=== PATIENT | female | born 1955 | race Caucasian/White ===

== ENCOUNTER 2016-12-18 16:02 | Emergency (ER) | payer OTHER, BC ==
[2016-12-18] MEDS ORDERED: KETOROLAC 60 MG/2 ML VIAL IVP STA (16:32)
[2016-12-18] MEDS ORDERED: SODIUM CHLORIDE 0.9% 1,000 ML IV ONE (16:32)
[2016-12-18] MEDS ORDERED: KETOROLAC 30 MG/ML VIAL ONE (16:46)
[2016-12-18] MEDS ORDERED: IOPAMIDOL-300 100 ML VIAL IVP ONE (17:33)
[2016-12-18] MEDS ORDERED: HYDROcod/ACETAM 5/325 MG TABLET PO STA (18:35)
[2016-12-18] MEDS ORDERED: HYDROcod/ACETAM 5/325 MG TABLET ONE (18:37)
== END 2016-12-18 18:59 | disposition home or self-care (01) ==
DX: S13.9XXA Sprain of joints and ligaments of unspecified parts of neck, initial encounter (principal); S20.211A Contusion of right front wall of thorax, initial encounter; V43.52XA Car driver injured in collision with other type car in traffic accident, initial encounter; Y92.410 Unspecified street and highway as the place of occurrence of the external cause; R03.0 Elevated blood-pressure reading, without diagnosis of hypertension
CPT/HCPCS: 36415; 71260; 72125; 80048; 85025; 96374; 99283; 99284; A9270; Q9967

== ENCOUNTER 2016-12-25 15:02 | Outpatient (CLI) | payer OTHER | END 2016-12-25 15:03 | disposition home or self-care (01) | DX: M51.34 Other intervertebral disc degeneration, thoracic region (principal); M51.36 Other intervertebral disc degeneration, lumbar region; M47.816 Spondylosis without myelopathy or radiculopathy, lumbar region ==

== ENCOUNTER 2019-03-25 15:55 | Outpatient (CLI) | payer OTHER ==
--- NOTE | 2019-03-26 11:25 | Mammography Report ---
Reason: SCREENING MAMMO Procedure Date: 03/25/2019 Accession Number: [id number] / [id number] Procedure: ROSALINO - Screening Mammo w/Fredo CPT Code: FULL RESULT: EXAM: Screening Mammo w/Fredo DATE: 03/25/2019 4:22 PM CLINICAL HISTORY: Routine screening TECHNIQUE: (B) - Bilateral CC and MLO views were obtained. COMPARISON: 03/01/2014, 10/06/2012, 02/17/2010 PARENCHYMAL PATTERN: (F) - The breasts demonstrate diffuse fatty replacement bilaterally. FINDINGS: There is no significant interval change. There are no suspicious masses, calcifications, or areas of distortion. IMPRESSION: Negative examination. BI-RADS category 1. RECOMMENDATION: (ANNUAL) - Recommend routine annual screening mammography. BI-RADS CATEGORY: (1) - Negative. STANDARD QUALIFYING STATEMENTS: 1. This examination was not reviewed with the aid of Computer-Aided Detection (CAD). 2. A negative or benign imaging report should not preclude biopsy if clinically suspicious findings are present. 3. Dense breasts may obscure an underlying neoplasm. 4. This examination was reviewed with the aid of 3D breast imaging (tomosynthesis).
== END 2019-03-25 15:56 | disposition home or self-care (01) ==
LOC: DI 15:55
PROVIDERS: ATTEND Nurse Practitioner Family
DX: Z12.31 Encounter for screening mammogram for malignant neoplasm of breast (principal)
CPT/HCPCS: 77063; 77067

== ENCOUNTER 2021-01-07 10:49 | Emergency (ER) | payer OTHER, BC ==
--- NOTE | 2021-01-07 11:21 | ED Physician Documentation ---
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 She reports that she was walking to a client's house and was about to step up with a threshold when she slipped falling forward striking her head on the tile entryway. She has a large contusion above her left eyebrow. She also reports falling directly onto the right knee but not twisting it. She had difficulty getting up. Did not lose consciousness. She is not anticoagulated. pt endorses nausea, but no vomiting. no vision changes. + headache and nausea. no vomiting. appears otherwise well. Review of Systems Constitutional: reports: Reviewed and negative Eyes: denies: Loss of vision, Decreased vision Ears: reports: Reviewed and negative Nose: reports: Reviewed and negative Throat: reports: Reviewed and negative Cardiac: reports: Reviewed and negative Respiratory: reports: Reviewed and negative GI: reports: Reviewed and negative : reports: Reviewed and negative Skin: reports: Reviewed and negative Musculoskeletal: reports: Back pain, Joint pain (right knee) Neurologic: reports: Headache, Head injury. denies: Syncope, Seizure, Confused, LOC Psychiatric: reports: Reviewed and negative PD PAST MEDICAL HISTORY - Present Medications Home Medications: Ambulatory Orders Medication Instructions Recorded Confirmed Gabapentin 12/18/16 HYDROcod/ACETAM 5/325 [[place] 5/325] 1 - 2 ea PO Q6H PRN #15 tablet 12/18/16 Loratadine [Claritin] 12/18/16 Sertraline [Zoloft] 100 12/18/16 Ondansetron Odt [Zofran] 4 mg TL Q6H PRN #10 tab 01/07/21 - Allergies Allergies/Adverse Reactions: Allergies Allergy/AdvReac Type Severity Reaction Status Date / Time codeine Allergy Emesis Verified 01/07/21 10:59 morphine Allergy Emesis Verified 01/07/21 10:59 PD ED PE EXPANDED - General General: Alert, No acute distress, Well developed/nourished - HEENT HEENT: PERRL, EOMI, Other (Large contusion of the left eyebrow without laceration. EOMI is intact in all planes. Mild tenderness above the left orbital ridge without crepitus or deformity. No nasal drainage. No ear drainage.). No: Right frontal sinus TTP, Left frontal sinus TTP, Right maxillary sinus TTP, Left maxillary sinus TTP, Nasal congestion - Neck Neck: Supple w/out meningeal sx. No: Adenopathy - Cardiac Cardiac: Regular Rate, Regular Rhythm - Respiratory Respiratory: Clear to ausultation riaz. No: Distress, Labored - Abdomen Abdomen: No: Tender to palpation - Extremities Extremities: Normal, Tenderness (right knee), Right knee (Full range of motion of the right knee in all planes. Contusion mild abrasion on the patella. No laxity. Patient bears full weight on the right leg with a mild limp only). No: Deformity - Neuro Neuro: Alert and Oriented X 3, CNII-XII intact - GCS Eye Opening: Spontaneous Motor: Obeys Commands Verbal: Oriented Total: 15 Results - Vitals Vitals: Vital Signs - 24 hr 01/07/21 01/07/21 10:56 11:55 Temperature 36.0 C L Heart Rate 84 77 Respiratory 16 15 Rate Blood Pressure 143/76 H 114/68 O2 Saturation 97 97 Oxygen O2 Source Room air - Rads (name of study) CT head Radiology: Final report received (Left periorbital hematoma. No acute fractures. No intraparenchymal head bleed or injury.) right knee Radiology: Final report received (Age-related degenerative changes. 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 She has a very large hematoma surrounding the left eye. CT of the head is unremarkable. She also fell directly onto the right knee and has an abrasion and contusion of the knee. X-ray imaging of the knee does not show any fractures. She is ambulatory though she has a mild limp. Patient will be discharged home to follow-up with her primary care doctor. She is returned to full unrestricted duty 01/12/2021. Emergent return precautions discussed. appropriate L&I paperwork completed Departure - Departure Disposition: 01 Home, Self Care Clinical Impression: Contusion of left eyebrow Qualifiers: Encounter type: initial encounter Qualified Code(s): S00.12XA - Contusion of left eyelid and periocular area, initial encounter Contusion of right knee Qualifiers: Encounter type: initial encounter Qualified Code(s): S80.01XA - Contusion of right knee, initial encounter Fall Qualifiers: Encounter type: initial encounter Qualified Code(s): W19.XXXA - Unspecified fall, initial encounter Concussion Qualifiers: Encounter type: initial encounter Loss of consciousness presence/duration: without LOC Qualified Code(s): S06.0X0A - Concussion without loss of consciousness, initial encounter Condition: Stable Record reviewed to determine appropriate education?: Yes Instructions: ED Head Injury Closed Follow-Up: Balwinder Vega ARNP [Primary Care Provider] - Prescriptions: Ondansetron Odt [Zofran] 4 mg TL Q6H PRN #10 tab PRN Reason: Nausea / Vomiting Comments: Melani the CT of your head does not show any broken bones or bleeding within the brain. You do however have a very large hematoma around her left eye. This should resolve over the next 7 to 10 days. The x-ray of your knee shows age-appropriate degenerative changes but no acute fractures. I do recommend that you Gonzalez wrap the knee when out of bed and ambulating for the next 2 to 3 days. I expect that over the next 2 to 3 days you will be much more sore than you are at this current time. I recommend that you take ibuprofen and Tylenol 2-3 times throughout the day to help with soreness. Try and be as active as possible and keep moving. If at any point you develop a suddenly severe headache, have uncontrolled vomiting, double vision or feel that your symptoms are worsening please return to the emergency department. You are return to full unrestricted duty and work 01/12/21
[2021-01-07] MEDS ORDERED: ONDANSETRON ODT 4 MG TABLET TL STA (11:22)
--- NOTE | 2021-01-07 11:54 | CT Report ---
PROCEDURE: HEAD WO INDICATIONS: left eyebrow contusion TECHNIQUE: Noncontrast 4.5 mm thick angled axial sections acquired from the foramen magnum to the vertex. For r adiation dose reduction, the following was used: automated exposure control, adjustment of mA and/or kV according to patient size. COMPARISON: Correlation is made with report only from prior head CT 10/14/2010. FINDINGS: Image quality: Excellent. CSF spaces: Basal cisterns are patent. No extra-axial fluid collections. Ventricles are normal in size and shape. Brain: No midline shift. No intracranial masses or hemorrhage. Fregoso-white matter interface is norm al. Skull and face: There is a left periorbital soft tissue hematoma, without an associated regional fra cture. Calvarium and visualized facial bones are intact, without suspicious lesions. Hyperostosis fr ontalis is incidentally noted, which is not frankly abnormal for a female patient of this age. Sinuses: Visualized sinuses and mastoids are clear. IMPRESSION: Left periorbital hematoma, without an associated fracture. No intracranial hemorrhage is seen. No significant intracranial abnormality is seen. Reviewed by: Blaise Alvarez MD on 01/07/2021 10:52 AM [facility] Approved by: Blaise Alvarez MD on 01/07/2021 10:52 AM [facility] Station ID: [id number]
--- NOTE | 2021-01-07 11:55 | XRAY Report ---
PROCEDURE: Knee 3 View RT INDICATIONS: fall; contusion patella TECHNIQUE: 3 views of the right knee(s) were acquired. COMPARISON: None. FINDINGS: Bones: No fractures or dislocations. No suspicious bony lesions. There is mild medial femorotibial joint space narrowing, with associated degenerative change with subchondral sclerosis and osteophyte formation. Soft tissues: No joint effusion. No suspicious soft tissue calcifications. IMPRESSION: No displaced fractures are seen, including involving the patella. Age-appropriate degenerative changes are seen. Please correlate with focal tenderness. If there is point tenderness (or other clinical concern for a fracture not seen on these plain films) then please consider a dedicated CT study for further evalua tion. If there is strong clinical concern for internal derangement of the knee, please consider a dedicated knee MRI for further evaluation (assuming that there is no contraindication). Reviewed by: Blaise Alvarez MD on 01/07/2021 10:54 AM [facility] Approved by: Blaise Alvarez MD on 01/07/2021 10:54 AM [facility] Station ID: [id number]
[2021-01-07] MEDS ORDERED: IBUPROFEN 600 MG TABLET PO STA (11:58)
[2021-01-07 12:22] VITALS: BP 127/82
== END 2021-01-07 12:21 | disposition home or self-care (01) ==
LOC: ED 10:49
DX: S06.0X1A Concussion with loss of consciousness of 30 minutes or less, initial encounter (principal); S00.83XA Contusion of other part of head, initial encounter; S80.211A Abrasion, right knee, initial encounter; W01.198A Fall on same level from slipping, tripping and stumbling with subsequent striking against other object, initial encounter; Y93.01 Activity, walking, marching and hiking; Y92.099 Unspecified place in other non-institutional residence as the place of occurrence of the external cause
CPT/HCPCS: 70450; 73562; 99284; A9270; Q0162

== ENCOUNTER 2021-08-02 12:28 | Outpatient (CLI) | payer MEDICARE, OTHER | END 2021-08-02 12:29 | disposition home or self-care (01) | LOC: COV 12:28 | PROVIDERS: ATTEND Family Medicine | DX: U07.1 COVID-19 (principal) ==

== ENCOUNTER 2021-08-11 16:42 | Inpatient (IN) | payer MEDICARE, OTHER ==
[2021-08-11] MEDS ORDERED: DEXAMETHASONE 10 MG/ML VIAL IVP STA (17:14)
[2021-08-11] MEDS ORDERED: ONDANSETRON 4 MG/2 ML VIAL IVP STA (17:14)
[2021-08-11] MEDS ORDERED: KETOROLAC 30 MG/ML VIAL IVP STA (17:14)
--- NOTE | 2021-08-11 17:16 | ED Physician Documentation ---
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 She became symptomatic early in the day on August 01 with headache, aches, chills, sinus pain. Over the last few days has become progressively short of breath and has pulse oximetry equipment at home and noted sats in the range of 86-89 on room air at home. No heart or lung problems. She feels quite wobbly and weak when she is walking. Review of Systems Ten Systems: 10 systems reviewed and negative Constitutional: reports: Fever, Chills, Myalgias Nose: reports: Rhinorrhea / runny nose Respiratory: reports: Dyspnea, Cough PD PAST MEDICAL HISTORY - Present Medications Home Medications: Ambulatory Orders Medication Instructions Recorded Confirmed Gabapentin 12/18/16 HYDROcod/ACETAM 5/325 [[place] 5/325] 1 - 2 ea PO Q6H PRN #15 tablet 12/18/16 Loratadine [Claritin] 12/18/16 Sertraline [Zoloft] 100 12/18/16 Ondansetron Odt [Zofran] 4 mg TL Q6H PRN #10 tab 01/07/21 - Allergies Allergies/Adverse Reactions: Allergies Allergy/AdvReac Type Severity Reaction Status Date / Time codeine Allergy Emesis Verified 01/07/21 10:59 morphine Allergy Emesis Verified 01/07/21 10:59 - Social History Does the pt smoke?: No Smoking Status: Never smoker PD ED PE NORMAL - Vitals Vital signs reviewed: Yes (Room air sat at rest of 91%) - General General: Alert and oriented X 3, No acute distress - HEENT HEENT: PERRL, EOMI - Neck Neck: Supple, no meningeal sign, No bony TTP - Cardiac Cardiac: RRR, No murmur - Respiratory Respiratory: No respiratory distress, Other (Cough, quite rhonchorous at both bases and diminished at both bases) - Abdomen Abdomen: Non tender - Back Back: No CVA TTP, No spinal TTP - Derm Derm: Normal color, Warm and dry - Extremities Extremities: No edema, No calf tenderness / cord - Neuro Neuro: Alert and oriented X 3, Normal speech Results - Vitals Vitals: Vital Signs - 24 hr 09/17/21 09/17/21 16:58 17:39 Temperature 36.8 C Heart Rate 83 87 Respiratory 20 16 Rate Blood Pressure 138/83 H 123/86 H O2 Saturation 91 L 93 Oxygen O2 Source Room air - Labs Labs: Laboratory Tests 08/11/21 08/11/21 08/11/21 17:35 17:35 17:35 WBC 3.4 L RBC 5.50 H Hgb 15.4 Hct 46.8 MCV 85.1 MCH 28.0 MCHC 32.9 RDW 12.5 Plt Count 223 MPV 9.5 Neut # (Auto) 2.1 Lymph # (Auto) 1.0 L [place] # (Auto) 0.3 Eos # (Auto) 0.0 Baso # (Auto) 0.0 Absolute Nucleated RBC 0.00 Nucleated RBC % 0.0 VBG pH 7.451 H VBG pCO2 36.7 L VBG pO2 32.7 VBG HCO3 25.0 VBG Total CO2 26.1 VBG O2 Saturation 65.9 VBG Base Excess 1.4 Sodium 138 Potassium 4.2 Chloride 101 Carbon Dioxide 24 Anion Gap 13.0 BUN 14 Creatinine 0.6 Estimated GFR (MDRD) 100 Glucose 108 H Calcium 9.2 Magnesium 2.0 PD MEDICAL DECISION MAKING - ED course ED course: 86-year-old woman who [place] with positive Covid for the last 10 days presents now with hypoxemia. She is given Decadron and symptomatic treatments. D-dimer pending on admission. Spoke with Dr. Pollack for admission at 6:10 PM. Departure - Departure Disposition: 66 [facility] DC/Xfer Clinical Impression: Pneumonia due to COVID-19 virus, Hypoxia Condition: Serious
[2021-08-11 17:53] LABS: BASOPHILS % (AUTO) 0.3 %; EOSINOPHILS % (AUTO) 0.3 %; HCT - HEMATOCRIT 46.8 % (37.0-47.0); HGB - HEMOGLOBIN 15.4 g/dL (12.0-16.0); LYMPHOCYTES % (AUTO) 30.2 %; MEAN CORPUSCULAR HGB CONC 32.9 g/dL (32.0-36.0); MEAN CORPUSCULAR VOLUME 85.1 fL (81.0-99.0); MEAN PLATELET VOLUME 9.5 fL (7.9-10.8); MONOCYTES # (AUTO) 0.3 10^3/uL (0.0-1.0); NEUTROPHILS # (AUTO) 2.1 10^3/uL (1.5-6.6); NEUTROPHILS % (AUTO) 60.6 %; PLT - PLATELET COUNT 223 10^3/uL (130-450); RED CELL DISTRIBUTION WIDTH 12.5 % (12.0-15.0); WHITE BLOOD COUNT 3.4 x10^3/uL (4.8-10.8)
[2021-08-11 17:56] LABS: VBG BASE EXCESS 1.4 mmol/L (-2 - +2); VBG OXYGEN SATURATION 65.9 % (60-80); VBG PCO2 36.7 mmHg (41-51); VBG PH 7.451 (7.31-7.41); VBG PO2 32.7 mmHg (25-47); VBG TOTAL CO2 26.1 mmol/L (24-29)
[2021-08-11 18:04] LABS: CALCIUM 9.2 mg/dL (8.5-10.3); CREATININE 0.6 mg/dL (0.4-1.0); POTASSIUM 4.2 mmol/L (3.5-5.0)
[2021-08-11] MEDS ORDERED: SODIUM CHLORIDE FLUSH 0.9% 10 ML SYRINGE IVP PRN (18:11)
[2021-08-11] MEDS ORDERED: ONDANSETRON ODT 4 MG TABLET TL PRN (18:11)
[2021-08-11] MEDS ORDERED: ONDANSETRON 4 MG/2 ML VIAL IVP PRN (18:11)
[2021-08-11] MEDS ORDERED: oxyCODONE 5 MG TABLET PO PRN (18:11)
[2021-08-11] MEDS ORDERED: NON FORMULARY MED (Remdesivir 200 MG) IVP ONE (18:15)
[2021-08-11] MEDS ORDERED: DEXAMETHASONE 10 MG/ML VIAL IVP SCH (18:15)
--- NOTE | 2021-08-11 18:26 | HISTORY & PHYSICAL EXAMINATION ---
Chief Complaint - Chief Complaint Chief Complaint: cough and sob in covid 19 + History of Present Illness - Admitted From Admitted From:: home - History Obtained From Records Reviewed: [facility] History obtained from: Dr. 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 Seen in a walk-in clinic 9 days ago and was Covid positive. She became symptomatic with illness in August 01 with a headache, aches, chills, sinus pain. Over the last few days she is coughing, has dyspnea on exertion. Weak, anorexic. Has no high blood pressure, diabetes, cancer, immunocompromise state. There is no hemoptysis. No abdominal pain, no diarrhea. At home she has a pulse oximeter where her O2 sats are 86 and 89% on room air. She was seen in the emergency room where temperature was 36.8. Heart rate 83. Blood pressure 138/83. Respirations 20. 91% on room air. She has a significant cough with rhonchi at both bases and diminished breath sounds at both bases. No tachypnea. BMP is normal. White cell count is low at 3.4. Hem oglobin normal at 15.4. Platelets 223. 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 Porcelain arteries. Diabetic, hypertensive, status post [place]. Dad . She never knew him because parents were . 1 brother of heart attack in his 40s, 1 brother of ALS. 2 children are healthy Living arrangement: At home Living Situation: With spouse/s.o. Social History Notes: to her second . They live in their own home. She started smoking at the age of 20 and continued until her mid 30s and smoked half a pack per day. Rarely drinks alcohol. No history of recreational substance abuse. - Substance History Use: Uses substance without health or social issues: NONE Abuse: Recurrent use of substance despite neg consequences: NONE Dependence: Experiences withdrawal or developed tolerances: NONE - POLST Patient has POLST: No POLST Status: Full Code Meds/Allgy - Home Medications Home Medications: Ambulatory Orders Medication Instructions Recorded Confirmed Gabapentin 12/18/16 HYDROcod/ACETAM 5/325 [[place] 5/325] 1 - 2 ea PO Q6H PRN #15 tablet 12/18/16 Loratadine [Claritin] 12/18/16 Sertraline [Zoloft] 100 12/18/16 Ondansetron Odt [Zofran] 4 mg TL Q6H PRN #10 tab 01/07/21 - Allergies Allergies/Adverse Reactions: Allergies Allergy/AdvReac Type Severity Reaction Status Date / Time codeine Allergy Emesis Verified 01/07/21 10:59 morphine Allergy Emesis Verified 01/07/21 10:59 Review of Systems - Constitutional Constitutional: reports: Fatigue, Malaise, Poor appetite - Eyes Eyes: denies: Pain, Irritation, Amaurosis, Blurred vision, Vision loss - Ears, Nose & Throat Ears, Nose & Throat: reports: Nasal congestion, Postnasal drainage, Sore throat, Hoarseness. denies: Ear pain, Hearing loss, Nasal pain, Nasal discharge - Cardiovascular Cariovascular: reports: Exertional dyspnea, Decr. exercise tolerance. denies: Irregular heart rate, Palpitations, Chest pain, Edema, Syncope - Respiratory Respiratory: reports: Cough, Sputum production, SOB at rest, SOB with exertion. denies: Wheezing, Snoring, Orthopnea - Gastrointestinal Gastrointestinal: denies: Abdominal pain, Abdominal distention, Constipation, Diarrhea, Change in bowel habits, Rectal bleeding, Black stools, Bloody stools - Genitourinary Genitourinary: denies: Dysuria, Frequency, Urgency, Hematuria, Flank pain, Nocturia - Musculoskeletal Musculoskeletal: reports: Back pain, Muscle aches, Stiffness, Joint pain - Integumentary Integumentary: denies: Rash, Pruritis, Lesions, Dryness - Neurological Neurological: reports: General weakness, Headache. denies: Focal weakness, Dizziness, Memory problems, Pre-existing deficit, Abnormal gait - Psychiatric Psychiatric: reports: Depression. denies: Suicidal, Delusions, Hallucinations, Homicidal - Endocrine Endocrine: denies: Polyuria, Polydypsia, Polyphagia, Intolerance to cold - Hematologic/Lymphatic Hematologic/Lymphatic: denies: Anemia, Bruising, Petechiae Prior Level of Functionality: Completely independent with activities of daily living. She still works full- time. Takes care of her house, drives, pays bills, goes grocery [place], etc. Exam - Vital Signs Reviewed Vital Signs: Yes Vital Signs: Vital Signs x48h Temp Pulse Resp BP Pulse Ox 08/11/21 17:39 85 16 110/77 94 08/11/21 16:58 36.8 C 83 20 138/83 H 91 L - Physical Exam General Appearance: positive: Alert, Moderate distress (From constant cough that will interrupt her ability to speak complete sentences) Eyes Bilateral: positive: PERRL, EOMI ENT: positive: No signs of dehydration Neck: positive: No JVD, Lymphadenopathy (R), Lymphadenopathy (L). negative: Stiff neck Respiratory: positive: No respiratory distress, Rhonchi. negative: Wheezes, Rales Cardiovascular: positive: Regular rate & rhythm. negative: Systolic murmur, Gallop/S4, Friction rub Peripheral Pulses: positive: 1+ Abdomen: positive: Non-tender, No organomegaly, Nml bowel sounds, No distention Skin: positive: No rash, Warm, Dry Extremities: positive: Non-tender, Full ROM, No pedal edema Neurologic/Psychiatric: positive: Oriented x3, CN's nml (2-12), Motor nml, Sensation nml Conclusion/Plan - Problem List (1) Pneumonia due to COVID-19 virus Conclusion/Plan: Plan on inpatient status Remdesivir protocol Decadron 6 mg daily x10 Supplemental oxygen to maintain O2 sats greater than 92% Daily CBC, BMP, CRP DVT prophylaxis with Lovenox FULL CODE STATUS. If she needs to be intubated she is willing to do BiPAP and then progressed to intubation if necessary (2) Hypoxia Conclusion/Plan: Supplemental oxygen to maintain O2 sats greater than 92%. Full CODE STATUS. (3) Fibromyalgia Conclusion/Plan: She is off label use of naltrexone. Take sertraline. And multivitamins. Those will be resumed tomorrow. - Lab Results Lab results reviewed: Yes Fish Bones: 08/11/21 17:35 08/11/21 17:35 - Diagnostic Imaging Results Diagnostic Imaging Results: positive: Prelim report reviewed - EKG Results EKG Interpreted Independently: No Core Measures - Anticipated LOS I expect patient to be DC'd or transferred within 96 hours.: Yes - DVT/VTE - Prophylaxis VTE/DVT Device ordered at admit?: Yes
[2021-08-11] MEDS ORDERED: REMDESIVIR 100MG VIAL 200 MG in SODIUM CHLORIDE 0.9% 250 ML IV ONE (19:00)
[2021-08-11] MEDS: LACTATED RINGERS 1,000 ML IV SCH (20:52)
[2021-08-12] MEDS: SODIUM CHLORIDE FLUSH 0.9% 10 ML SYRINGE IVP SCH ×3 (02:20→16:33)
[2021-08-12] MEDS ORDERED: LEVOTHYROXINE 75 MCG TABLET ONE (05:01)
[2021-08-12] MEDS: LACTATED RINGERS 1,000 ML IV SCH (05:32)
[2021-08-12 06:45] LABS: BASOPHILS % (AUTO) 0.5 %; HCT - HEMATOCRIT 43.8 % (37.0-47.0); HGB - HEMOGLOBIN 14.3 g/dL (12.0-16.0); LYMPHOCYTES # (AUTO) 0.7 10^3/uL (1.5-3.5); LYMPHOCYTES % (AUTO) 38.5 %; MEAN CORPUSCULAR HEMOGLOBIN 27.6 pg (27.0-31.0); MEAN CORPUSCULAR HGB CONC 32.6 g/dL (32.0-36.0); MEAN CORPUSCULAR VOLUME 84.6 fL (81.0-99.0); MEAN PLATELET VOLUME 9.6 fL (7.9-10.8); MONOCYTES # (AUTO) 0.2 10^3/uL (0.0-1.0); MONOCYTES % (AUTO) 8.3 %; NEUTROPHILS % (AUTO) 52.2 %; PLT - PLATELET COUNT 227 10^3/uL (130-450); RED BLOOD COUNT 5.18 10^6/uL (4.20-5.40); RED CELL DISTRIBUTION WIDTH 12.4 % (12.0-15.0)
[2021-08-12 06:56] LABS: WHITE BLOOD COUNT 1.9 x10^3/uL (4.8-10.8)
[2021-08-12 06:57] LABS: SLIDE REVIEW? Indicated
[2021-08-12 07:02] LABS: CALCIUM 8.9 mg/dL (8.5-10.3); CREATININE 0.6 mg/dL (0.4-1.0); CRP - C-REACTIVE PROTEIN 2.4 mg/dL (0-1.0); POTASSIUM 4.2 mmol/L (3.5-5.0)
[2021-08-12 07:39] LABS: PLATELET ESTIMATE, MANUAL NORMAL (130-450,000) (NORMAL); PLATELET MORPHOLOGY NORMAL APPEARANCE (NORMAL); RBC MORPHOLOGY (MULTIPLE) NORMAL APPEARANCE (NORMAL); WBC MORPHOLOGY (MULTIPLE) NORMAL APPEARANCE (NORMAL)
[2021-08-12 07:40] LABS: DIFFERENTIAL COMMENT MANUAL=AUTO DIFF
[2021-08-12] MEDS: REMDESIVIR 100MG VIAL 100 MG in SODIUM CHLORIDE 0.9% 100ML 100 ML IV SCH (09:11)
[2021-08-12] MEDS: ENOXAPARIN 40 MG/0.4 ML SYRINGE SUBQ SCH (09:12)
[2021-08-12] MEDS: DEXAMETHASONE 4 MG/ML VIAL IVP SCH (09:12)
--- NOTE | 2021-08-12 09:22 | Discharge Plan ---
Discharge Plan Problem Reviewed?: Yes Disposition: Home, Self Care Condition: Poor Prescriptions: Ondansetron Odt [Zofran Odt] 4 mg TL Q6HR PRN #30 tablet PRN Reason: Nausea / Vomiting Dexamethasone [Decadron] 6 mg PO DAILY #9 tablet Diet: Regular Activity Restrictions: Activity as Tolerated Shower Restrictions: No Driving Restrictions: No Health Concerns: you presented to the hospital with respiratory distress and we found you to have a low oxygen because of Covid. Your oxygen sometimes goes back up to normal. We admitted you for Covid pneumonia and started you on the treatment with remdesivir and steroids. Overnight, your oxygen levels have been satisfactory at 94% but on 2 liter of [place] oxygen. You have O2 sats of 92% at rest. With walking you oxygen goes to Plan of Treatment: 1. I am recommending that you stay in the hospital because your white cell count has dropped, and I do think you will be getting worse not better in the next 24 to 48 hours. You still feel like you can go home and will return if you worsen. 2. I will send you home on Decadron 6 mg a day for total of 10 days of therapy. 3. You would like some Zofran to go home with for the nausea when it returns. 4. Please see your primary care provider in follow-up in via telemedicine. Care Goals: To recover from Covid at home without needing hospitalization is your personal goal Assessment: Patient states that she will get vaccine as soon as possible. And will return to hospital if she worsens Additional Instructions or Follow Up instructions: the patient asked for discharge on 08/12 adn then changed her mind so the dc was cancelled and she stayed until 08/15 No Smoking: If you smoke, Please STOP! Call for help. Follow-up with: Balwinder Vega ARNP [Primary Care Provider] -
[2021-08-12] MEDS ORDERED: ALBUTEROL NEB 2.5 MG/3 ML INH PRN (10:15)
--- NOTE | 2021-08-12 10:18 | PROVIDER PROGRESS NOTE ---
Subjective - Prog Note Date Prog Note Date: 08/12/21 Prog Note Time: 10:16 - Subjective Subjective: The entire time she has been here she has felt that this was overkill. Even in the emergency room as I was admitting her she was startled that we would admit her for acceptable oxygen saturations in her mind. Overnight she required 2 L to maintain O2 sats at 94%. This morning she felt better, was sitting up and walking in the room. On 2 L she felt perfectly fine walking to the bathroom and back. She asked us for discharge. She said that she really felt that this was not a place for her. The most she wanted with antiemetics, nebulizers and a c ough medicine to go home on. I explained that her white cell count was low, that the natural progression of COVID-19 would suggest that she may become way more ill over the next 24 to 48 hours than she would anticipate. She still wanted to go home. I then did discharge orders. Sent prescriptions to the pharmacy. She got up and walked around without oxygen therapy. And her O2 sats dropped to 88%. She became lightheaded. She has changed her mind and would like to stay. Current Medications - Current Medications Current Medications: Active Medications Acetaminophen (Acetaminophen 325 Mg Tablet) 650 mg PO Q4HR PRN PRN Reason: Pain 1 to 4 Albuterol (Albuterol Neb 2.5 Mg/3 Ml) 2.5 mg INH RTQ4H PRN PRN Reason: Wheezing Dexamethasone (Dexamethasone 4 Mg/Ml Vial) 6 mg IVP DAILY [facility] Last Admin: 08/12/21 09:12 Dose: 6 mg Documented by: Enoxaparin Sodium (Enoxaparin 40 Mg/0.4 Ml Syringe) 40 mg SUBQ DAILY [facility] Last Admin: 08/12/21 09:12 Dose: 40 mg Documented by: Lactated Ringer's (Lr) 1,000 mls @ 100 mls/hr IV .Q10H [facility] Stop: 08/12/21 14:59 Last Admin: 08/12/21 05:32 Dose: 100 mls/hr Documented by: Remdesivir 100 mg/ Sodium (Chloride) 100 mls @ 200 mls/hr IV DAILY [facility] Stop: 08/15/21 09:29 Last Admin: 08/12/21 09:11 Dose: 200 mls/hr Documented by: Ondansetron HCl (Ondansetron Odt 4 Mg Tablet) 4 mg TL Q6HR PRN PRN Reason: Nausea / Vomiting Ondansetron HCl (Ondansetron 4 Mg/2 Ml Vial) 4 mg IVP Q6HR PRN PRN Reason: Nausea / Vomiting Oxycodone HCl (Oxycodone 5 Mg Tablet) 5 mg PO Q4HR PRN PRN Reason: Pain 5 to 7 Sodium Chloride (Sodium Chloride Flush 0.9% 10 Ml Syringe) 10 ml IVP PRN PRN PRN Reason: NEEDED PER PROVIDER ORDERS Sodium Chloride (Sodium Chloride Flush 0.9% 10 Ml Syringe) 10 ml IVP 0100,0900,1700 [facility] Last Admin: 08/12/21 09:13 Dose: 10 ml Documented by: Sertraline HCl 100 mg PO DAILY 08/12/21 Objective - Vital Signs/Intake & Output Reviewed Vital Signs: Yes Vital Signs: Vital Signs x48h Temp Pulse Pulse Resp BP Pulse Ox 08/12/21 09:25 20 92 08/12/21 08:00 36.6 C 100 20 137/60 H 94 08/12/21 06:25 36.6 C 78 20 131/48 H 94 08/12/21 06:18 36.7 C 81 20 92 08/12/21 05:39 92 Intake & Output: Intake & Output 08/09/21 08/10/21 08/11/21 08/12/21 23:59 23:59 23:59 23:59 Intake Total 750 1606.667 Balance 750 1606.667 - Objective General Appearance: positive: Alert, Other ('s 5 foot 6 inch female 107.5 kg, ambulating in room, not needing any assist other than to help with untangling oxygen lines and IV lines) Eyes Bilateral: positive: PERRL, EOMI ENT: positive: No signs of dehydration, Other (Some nares congestion, postnasal drip, and nasal tone of voice) Neck: positive: No JVD. negative: Stiff neck Respiratory: positive: Rales (Very faint right midlung. Diminished breath sounds at the bases.), Other (Mildly tachypneic in the low 20s when she gets up to walk to the bathroom and then sits down). negative: Wheezes, Rhonchi Cardiovascular: positive: Regular rate & rhythm. negative: Gallop/S4, Friction rub Abdomen: positive: Non-tender, No organomegaly, Nml bowel sounds, No distention Skin: positive: Warm, Dry Extremities: positive: Full ROM, Pedal edema Neurologic/Psychiatric: positive: Oriented x3, CN's nml (2-12), Motor nml - Lab Results Fish Bones: 08/12/21 06:25 08/12/21 06:25 Other Labs: Lab Results x24hrs 08/12/21 08/12/21 08/11/21 Range/Units 06:25 06:25 18:14 WBC 1.9 L* (4.8-10.8) x10^3/uL RBC 5.18 (4.20-5.40) 10^6/uL Hgb 14.3 (12.0-16.0) g/dL Hct 43.8 (37.0-47.0) % MCV 84.6 (81.0-99.0) fL MCH 27.6 (27.0-31.0) pg MCHC 32.6 (32.0-36.0) g/dL RDW 12.4 (12.0-15.0) % Plt Count 227 (130-450) 10^3/uL MPV 9.6 (7.9-10.8) fL Neut # (Auto) 1.0 L (1.5-6.6) 10^3/uL Lymph # (Auto) 0.7 L (1.5-3.5) 10^3/uL Gordon # (Auto) 0.2 (0.0-1.0) 10^3/uL Eos # (Auto) 0.0 (0.0-0.7) 10^3/uL Baso # (Auto) 0.0 (0.0-0.1) 10^3/uL Absolute Nucleated RBC 0.00 x10^3/uL Total Counted [employer] Band Neuts % (Manual) Not Reportable Abnorm Lymph % (Manual) Not Reportable Nucleated RBC % 0.0 /100WBC Neutrophils # (Manual) Not Reportable Lymphocytes # (Manual) Not Reportable Monocytes # (Manual) Not Reportable Eosinophils # (Manual) Not Reportable Basophils # (Manual) Not Reportable Differential Comment MANUAL=AUTO DIFF Manual Slide Review Indicated WBC Morphology NORMAL APPEARANCE (NORMAL) Platelet Estimate NORMAL (130-450,000) (NORMAL) Platelet Morphology NORMAL APPEARANCE (NORMAL) RBC Morph Micro Appear NORMAL APPEARANCE (NORMAL) D-Dimer 237.7 (200.0-255.0) ng/mL VBG pH (7.31-7.41) VBG pCO2 (41-51) mmHg VBG pO2 (25-47) mmHg VBG HCO3 (23-28) mmol/L VBG Total CO2 (24-29) mmol/L VBG O2 Saturation (60-80) % VBG Base Excess (-2 - +2) mmol/L Sodium 140 (135-145) mmol/L Potassium 4.2 (3.5-5.0) mmol/L Chloride 106 (101-111) mmol/L Carbon Dioxide 24 (21-32) mmol/L Anion Gap 10.0 (6-13) BUN 16 (6-20) mg/dL Creatinine 0.6 (0.4-1.0) mg/dL Estimated GFR (MDRD) 100 (>89) Glucose 127 H (70-100) mg/dL Calcium 8.9 (8.5-10.3) mg/dL Magnesium (1.7-2.8) mg/dL C-Reactive Protein 2.4 H (0-1.0) mg/dL 08/11/21 08/11/21 08/11/21 Range/Units 17:35 17:35 17:35 WBC 3.4 L (4.8-10.8) x10^3/uL RBC 5.50 H (4.20-5.40) 10^6/uL Hgb 15.4 (12.0-16.0) g/dL Hct 46.8 (37.0-47.0) % MCV 85.1 (81.0-99.0) fL MCH 28.0 (27.0-31.0) pg MCHC 32.9 (32.0-36.0) g/dL RDW 12.5 (12.0-15.0) % Plt Count 223 (130-450) 10^3/uL MPV 9.5 (7.9-10.8) fL Neut # (Auto) 2.1 (1.5-6.6) 10^3/uL Lymph # (Auto) 1.0 L (1.5-3.5) 10^3/uL Gordon # (Auto) 0.3 (0.0-1.0) 10^3/uL Eos # (Auto) 0.0 (0.0-0.7) 10^3/uL Baso # (Auto) 0.0 (0.0-0.1) 10^3/uL Absolute Nucleated RBC 0.00 x10^3/uL Total Counted Band Neuts % (Manual) Abnorm Lymph % (Manual) Nucleated RBC % 0.0 /100WBC Neutrophils # (Manual) Lymphocytes # (Manual) Monocytes # (Manual) Eosinophils # (Manual) Basophils # (Manual) Differential Comment Manual Slide Review WBC Morphology (NORMAL) Platelet Estimate (NORMAL) Platelet Morphology (NORMAL) RBC Morph Micro Appear (NORMAL) D-Dimer (200.0-255.0) ng/mL VBG pH 7.451 H (7.31-7.41) VBG pCO2 36.7 L (41-51) mmHg VBG pO2 32.7 (25-47) mmHg VBG HCO3 25.0 (23-28) mmol/L VBG Total CO2 26.1 (24-29) mmol/L VBG O2 Saturation 65.9 (60-80) % VBG Base Excess 1.4 (-2 - +2) mmol/L Sodium 138 (135-145) mmol/L Potassium 4.2 (3.5-5.0) mmol/L Chloride 101 (101-111) mmol/L Carbon Dioxide 24 (21-32) mmol/L Anion Gap 13.0 (6-13) BUN 14 (6-20) mg/dL Creatinine 0.6 (0.4-1.0) mg/dL Estimated GFR (MDRD) 100 (>89) Glucose 108 H (70-100) mg/dL Calcium 9.2 (8.5-10.3) mg/dL Magnesium 2.0 (1.7-2.8) mg/dL C-Reactive Protein (0-1.0) mg/dL ABX Reporting Has patient been on IV antibiotics over the past 48 hours?: No Assessment/Plan - Problem List (1) Pneumonia due to COVID-19 virus Impression: She has agreed to remain but would like a daily review of O2 sats to see when she can go home. Her low wbc was discussed with her and what it meant. Plan: Remdesivir protocol, day #2 of 5 Decadron 6 mg daily x10, day #2 of 10 Supplemental oxygen to maintain O2 sats greater than 92% DVT prophylaxis with Lovenox FULL CODE STATUS. If she needs to be intubated she is willing to do BiPAP and then progressed to intubation if necessary (2) Hypoxia Conclusion/Plan: Supplemental oxygen to maintain O2 sats greater than 92%. Full CODE STATUS. (3) Fibromyalgia Conclusion/Plan: She is off label use of naltrexone. Take sertraline. And multivitamins. Those will be resumed today.
--- NOTE | 2021-08-12 10:39 | XRAY Report ---
PROCEDURE: Chest 1 View X-Ray INDICATIONS: cough covid TECHNIQUE: One view of the chest was acquired. COMPARISON: CT chest 12/18/2016 FINDINGS: Surgical changes and devices: None. Lungs and pleura: No pleural effusions or pneumothorax. Mildly low lung volumes. Subtle patchy opaci ties are seen in both lungs, slightly worse on the left. Mediastinum: Mediastinal contours appear normal. Heart size is normal. Bones and chest wall: No suspicious bony lesions. Overlying soft tissues appear unremarkable. IMPRESSION: Mild patchy opacities in both lungs are suspicious for bilateral pneumonia, including with viral agen ts such as COVID-19. Reviewed by: Denis Villela MD on 08/11/2021 11:57 PM PDT Approved by: Denis Villela MD on 08/11/2021 11:57 PM PDT Station ID: [id number]
[2021-08-12] MEDS ORDERED: CARBOXYMETHYLCELLULOSE OPHTH DROPS EACHEYE PRN (19:59)
[2021-08-13] MEDS: SODIUM CHLORIDE FLUSH 0.9% 10 ML SYRINGE IVP SCH ×4 (01:54→21:15)
[2021-08-13 06:14] LABS: BASOPHILS % (AUTO) 0.2 %; EOSINOPHILS # (AUTO) 0.1 10^3/uL (0.0-0.7); HCT - HEMATOCRIT 40.6 % (37.0-47.0); HGB - HEMOGLOBIN 13.3 g/dL (12.0-16.0); LYMPHOCYTES # (AUTO) 1.2 10^3/uL (1.5-3.5); MEAN CORPUSCULAR HEMOGLOBIN 27.7 pg (27.0-31.0); MEAN CORPUSCULAR HGB CONC 32.8 g/dL (32.0-36.0); MEAN CORPUSCULAR VOLUME 84.6 fL (81.0-99.0); MEAN PLATELET VOLUME 9.5 fL (7.9-10.8); MONOCYTES # (AUTO) 0.4 10^3/uL (0.0-1.0); MONOCYTES % (AUTO) 8.2 %; NEUTROPHILS # (AUTO) 3.4 10^3/uL (1.5-6.6); NEUTROPHILS % (AUTO) 67.2 %; PLT - PLATELET COUNT 243 10^3/uL (130-450); RED CELL DISTRIBUTION WIDTH 12.6 % (12.0-15.0)
[2021-08-13 06:30] LABS: CALCIUM 8.8 mg/dL (8.5-10.3); CREATININE 0.5 mg/dL (0.4-1.0); POTASSIUM 3.6 mmol/L (3.5-5.0)
--- NOTE | 2021-08-13 06:52 | PHARMACY PROGRESS NOTE ---
- Best Possible Medication History Admit Date and Time: 08/11/211810 Processed by: Pharmacy Medication History completed: Yes Patient Interview: Completed Secondary Source(s): Pharmacy records, Insurance records As the person ultimately responsible for medication therapy, providers are able to order a medication from an existing home medication list in [facility] via the "Reconcile Routine" prior to Confirmation of that medication by support representative. Such practice is discouraged except when the physician, in their clinical judgment, deems that a medical need exists for a medication without regard to previous use.
[2021-08-13] MEDS: ENOXAPARIN 40 MG/0.4 ML SYRINGE SUBQ SCH (09:30)
[2021-08-13] MEDS: DEXAMETHASONE 4 MG/ML VIAL IVP SCH (09:30)
[2021-08-13] MEDS: REMDESIVIR 100MG VIAL 100 MG in SODIUM CHLORIDE 0.9% 100ML 100 ML IV SCH (09:30)
--- NOTE | 2021-08-13 13:49 | PROVIDER PROGRESS NOTE ---
Subjective - Prog Note Date Prog Note Date: 08/13/21 Prog Note Time: 13:46 - Subjective Pt reports feeling: Improved Subjective: Respiratory therapy checked her status on room air. She is 84 to 86% sitting in a chair. With 2 L she saturates close to 98%. No new events. She is using IC(up to 1750cc) and coughing up gobs of phlegm. walking in room and sitting in chair. Mild nausea. Current Medications - Current Medications Current Medications: Active Medications Acetaminophen (Acetaminophen 325 Mg Tablet) 650 mg PO Q4HR PRN PRN Reason: Pain 1 to 4 Albuterol (Albuterol Neb 2.5 Mg/3 Ml) 2.5 mg INH RTQ4H PRN PRN Reason: Wheezing Carboxymethylcellulose (Carboxymethylcellulose Ophth Drops) 1 drops EACHEYE PRN PRN PRN Reason: Dry Eye Dexamethasone (Dexamethasone 4 Mg/Ml Vial) 6 mg IVP DAILY [facility] Last Admin: 08/13/21 09:30 Dose: 6 mg Documented by: Enoxaparin Sodium (Enoxaparin 40 Mg/0.4 Ml Syringe) 40 mg SUBQ DAILY [facility] Last Admin: 08/13/21 09:30 Dose: 40 mg Documented by: Remdesivir 100 mg/ Sodium (Chloride) 100 mls @ 200 mls/hr IV DAILY [facility] Stop: 08/15/21 09:29 Last Admin: 08/13/21 09:30 Dose: 200 mls/hr Documented by: Ondansetron HCl (Ondansetron Odt 4 Mg Tablet) 4 mg TL Q6HR PRN PRN Reason: Nausea / Vomiting Ondansetron HCl (Ondansetron 4 Mg/2 Ml Vial) 4 mg IVP Q6HR PRN PRN Reason: Nausea / Vomiting Oxycodone HCl (Oxycodone 5 Mg Tablet) 5 mg PO Q4HR PRN PRN Reason: Pain 5 to 7 Sodium Chloride (Sodium Chloride Flush 0.9% 10 Ml Syringe) 10 ml IVP PRN PRN PRN Reason: NEEDED PER PROVIDER ORDERS Sodium Chloride (Sodium Chloride Flush 0.9% 10 Ml Syringe) 10 ml IVP 0100,0900,1700 [facility] Last Admin: 08/13/21 09:00 Dose: 10 ml Documented by: Ascorbic Acid/Elderberry Fruit [Elderberry-Vit C 50-100 mg Chw] 1 each PO DAILY 08/12/21 Cholecalciferol (Vitamin D3) [Vitamin D3] 200 - 250 mcg PO DAILY 08/12/21 Naltrexone HCl 0.3 ml PO QPM 08/12/21 Sertraline HCl 100 mg PO DAILY 08/12/21 Thiamine [Vitamin B-1] 100 mg PO DAILY 08/12/21 Vitamin B Complex 1 each PO DAILY 08/12/21 Objective - Vital Signs/Intake & Output Reviewed Vital Signs: Yes Vital Signs: Vital Signs x48h Temp Pulse Resp BP Pulse Ox 08/13/21 08:00 36.4 C L 65 18 132/57 H 98 Intake & Output: Intake & Output 08/10/21 08/11/21 08/12/21 08/13/21 23:59 23:59 23:59 23:59 Intake Total 750 4356.667 765 Balance 750 4356.667 765 - Objective General Appearance: positive: No acute distress, Alert, Other (sitting in chair w glasses on,) Eyes Bilateral: positive: PERRL, EOMI ENT: positive: No signs of dehydration Neck: positive: No JVD. negative: Stiff neck, Carotid bruit Respiratory: positive: No respiratory distress, Rales (both bases. no cough), Other (earlier this am resp tx reported b/l rhonchi and coughing.) Cardiovascular: positive: Regular rate & rhythm. negative: Gallop/S4, Friction rub Abdomen: positive: Non-tender, No organomegaly, Nml bowel sounds, No distention Skin: positive: Warm, Dry Extremities: positive: Full ROM, No pedal edema Neurologic/Psychiatric: positive: Oriented x3, CN's nml (2-12), Motor nml, Sensation nml - Lab Results Fish Bones: 08/13/21 06:06 08/13/21 06:06 Other Labs: Lab Results x24hrs 08/13/21 08/13/21 Range/Units 06:06 06:06 WBC 5.0 (4.8-10.8) x10^3/uL RBC 4.80 (4.20-5.40) 10^6/uL Hgb 13.3 (12.0-16.0) g/dL Hct 40.6 (37.0-47.0) % MCV 84.6 (81.0-99.0) fL MCH 27.7 (27.0-31.0) pg MCHC 32.8 (32.0-36.0) g/dL RDW 12.6 (12.0-15.0) % Plt Count 243 (130-450) 10^3/uL MPV 9.5 (7.9-10.8) fL Neut # (Auto) 3.4 (1.5-6.6) 10^3/uL Lymph # (Auto) 1.2 L (1.5-3.5) 10^3/uL [place] # (Auto) 0.4 (0.0-1.0) 10^3/uL Eos # (Auto) 0.1 (0.0-0.7) 10^3/uL Baso # (Auto) 0.0 (0.0-0.1) 10^3/uL Absolute Nucleated RBC 0.00 x10^3/uL Nucleated RBC % 0.0 /100WBC Sodium 140 (135-145) mmol/L Potassium 3.6 (3.5-5.0) mmol/L Chloride 106 (101-111) mmol/L Carbon Dioxide 25 (21-32) mmol/L Anion Gap 9.0 (6-13) BUN 16 (6-20) mg/dL Creatinine 0.5 (0.4-1.0) mg/dL Estimated GFR (MDRD) 124 (>89) Glucose 105 H (70-100) mg/dL Calcium 8.8 (8.5-10.3) mg/dL C-Reactive Protein 1.0 (0-1.0) mg/dL ABX Reporting Has patient been on IV antibiotics over the past 48 hours?: No Assessment/Plan - Problem List (1) Pneumonia due to COVID-19 virus Impression: She has agreed to remain but would like a daily review of O2 sats to see when she can go home. WBC went to 1.9 yesterday and is 5 today. Plan: Remdesivir protocol, day #3 of 5 Decadron 6 mg daily x10, day #3 of 10 Supplemental oxygen to maintain O2 sats greater than 92% DVT prophylaxis with Lovenox FULL CODE STATUS. If she needs to be intubated she is willing to do BiPAP and then progressed to intubation if necessary If she stays stable by the end of remdesivir it is reasonable to send her home on home 02 (?2 liters) (2) Hypoxia Conclusion/Plan: Supplemental oxygen to maintain O2 sats greater than 92%. Full CODE STATUS. (3) Fibromyalgia Conclusion/Plan: She uses off label use of naltrexone. Not on formulary. Takes sertraline. And multivitamins. The latter two resumed.
[2021-08-13] MEDS: ACETAMINOPHEN 325 MG TABLET PO PRN (16:05)
[2021-08-13] MEDS: guaiFENesin 600 MG TABLET PO SCH ×2 (16:05→21:15)
[2021-08-14 05:32] LABS: BASOPHILS % (AUTO) 0.2 %; EOSINOPHILS # (AUTO) 0.1 10^3/uL (0.0-0.7); EOSINOPHILS % (AUTO) 1.9 %; HCT - HEMATOCRIT 39.9 % (37.0-47.0); HGB - HEMOGLOBIN 12.9 g/dL (12.0-16.0); LYMPHOCYTES # (AUTO) 1.2 10^3/uL (1.5-3.5); LYMPHOCYTES % (AUTO) 22.9 %; MEAN CORPUSCULAR HEMOGLOBIN 27.8 pg (27.0-31.0); MEAN CORPUSCULAR HGB CONC 32.3 g/dL (32.0-36.0); MEAN PLATELET VOLUME 9.5 fL (7.9-10.8); MONOCYTES # (AUTO) 0.5 10^3/uL (0.0-1.0); MONOCYTES % (AUTO) 8.8 %; NEUTROPHILS # (AUTO) 3.4 10^3/uL (1.5-6.6); NEUTROPHILS % (AUTO) 65.6 %; PLT - PLATELET COUNT 249 10^3/uL (130-450); RED BLOOD COUNT 4.64 10^6/uL (4.20-5.40); RED CELL DISTRIBUTION WIDTH 12.7 % (12.0-15.0); WHITE BLOOD COUNT 5.2 x10^3/uL (4.8-10.8)
[2021-08-14 05:51] LABS: CALCIUM 8.9 mg/dL (8.5-10.3); CREATININE 0.6 mg/dL (0.4-1.0); CRP - C-REACTIVE PROTEIN 1.4 mg/dL (0-1.0); POTASSIUM 3.7 mmol/L (3.5-5.0)
[2021-08-14] MEDS: SODIUM CHLORIDE FLUSH 0.9% 10 ML SYRINGE IVP SCH ×2 (08:27→16:40)
[2021-08-14] MEDS: DEXAMETHASONE 4 MG/ML VIAL IVP SCH (08:27)
[2021-08-14] MEDS: ACETAMINOPHEN 325 MG TABLET PO PRN ×2 (08:27→20:45)
[2021-08-14] MEDS: SERTRALINE 50 MG TABLET PO SCH (08:28)
[2021-08-14] MEDS: guaiFENesin 600 MG TABLET PO SCH ×2 (08:28→20:45)
[2021-08-14] MEDS: ENOXAPARIN 40 MG/0.4 ML SYRINGE SUBQ SCH (08:29)
[2021-08-14] MEDS: THIAMINE 100 MG TABLET PO SCH (08:29)
[2021-08-14] MEDS: REMDESIVIR 100MG VIAL 100 MG in SODIUM CHLORIDE 0.9% 100ML 100 ML IV SCH (09:29)
--- NOTE | 2021-08-14 19:28 | PROVIDER PROGRESS NOTE ---
Progress Note August 14, 2021 7:25 PM She does she feels pretty good. She says that the shortness of breath that was present on admission is much abated. She continues to have a deep cough is productive of white phlegm. She really does not have an appetite and is eating half of what they give her and she does not want to eat or drink the Ensure. The Lovenox in her left arm is really starting to hurt her left arm and she wonders if there is anything else she could do. She is down to 1 L nasal cannula to maintain her O2 sats at 95%. Medications are Tylenol, albuterol, refresh ophthalmic solution, Decadron, Lovenox, Mucinex, Roxicodone, remdesivir, Zoloft, thiamine. Temperature is 36.7. Heart rate is 80. Blood pressure 125/49. Respirations 20. 95% saturated on 1 L. She is alert oriented middle-aged female who looks her stated age. Sitting comfortably in the chair watching TV with a blanket over her lap. Neck is supple with shotty adenopathy. Lungs are clear to auscultation and percussion. I am not hear any crackles rhonchi wheezing. No increased respiratory effort and she is able to complete full sentences. PMI is normally placed with a regular rate and rhythm. The abdomen is obese soft nontender. Extremities are without edema. BMP is normal today. C-reactive protein is 1.4. White cell count is 5.2. Hemoglobin 12.9. Hematocrit 39. Platelets 249. Assessment/plan 1. Pneumonia due to Covid virus. Remdesivir protocol, day 4 out of 5. Decadron day 4 out of 10. Supplemental oxygen to maintain O2 sat greater than 92%. Change DVT prophylaxis from Lovenox to Eliquis low dose Full CODE STATUS 2. Hypoxia. Supplemental oxygen to maintain O2 sats greater than 92%. Full CODE STATUS. See which she is on room air at rest tomorrow and try and do desat test to see if she can go home on 1 to 2 L of oxygen.
[2021-08-15] MEDS: diphenhydrAMINE 25 MG CAPSULE PO PRN ×2 (01:14→10:15)
[2021-08-15] MEDS: SODIUM CHLORIDE FLUSH 0.9% 10 ML SYRINGE IVP SCH ×2 (01:15→10:21)
[2021-08-15] MEDS ORDERED: CALAMINE/ZINC OXIDE 177 ML BOTTLE TOP PRN (01:27)
[2021-08-15 05:35] LABS: BASOPHILS % (AUTO) 0.2 %; EOSINOPHILS # (AUTO) 0.2 10^3/uL (0.0-0.7); EOSINOPHILS % (AUTO) 2.5 %; HCT - HEMATOCRIT 41.7 % (37.0-47.0); HGB - HEMOGLOBIN 13.8 g/dL (12.0-16.0); LYMPHOCYTES # (AUTO) 1.2 10^3/uL (1.5-3.5); LYMPHOCYTES % (AUTO) 19.5 %; MEAN CORPUSCULAR HGB CONC 33.1 g/dL (32.0-36.0); MEAN CORPUSCULAR VOLUME 84.6 fL (81.0-99.0); MEAN PLATELET VOLUME 9.4 fL (7.9-10.8); MONOCYTES # (AUTO) 0.5 10^3/uL (0.0-1.0); MONOCYTES % (AUTO) 8.2 %; NEUTROPHILS # (AUTO) 4.2 10^3/uL (1.5-6.6); NEUTROPHILS % (AUTO) 68.8 %; PLT - PLATELET COUNT 273 10^3/uL (130-450); RED BLOOD COUNT 4.93 10^6/uL (4.20-5.40); RED CELL DISTRIBUTION WIDTH 12.5 % (12.0-15.0); WHITE BLOOD COUNT 6.1 x10^3/uL (4.8-10.8)
[2021-08-15 05:48] LABS: CREATININE 0.6 mg/dL (0.4-1.0); CRP - C-REACTIVE PROTEIN 3.6 mg/dL (0-1.0); POTASSIUM 3.6 mmol/L (3.5-5.0)
[2021-08-15] MEDS ORDERED: dexAMETHasone 4 MG TABLET PO SCH (08:00)
--- NOTE | 2021-08-15 08:54 | DISCHARGE SUMMARY ---
Discharge Summary Admit Date: 08/11/21 Discharge Date: 08/15/21 Discharging Provider: Keysha Gary Primary Care Provider: Balwinder Vega Code Status: Attempt Resuscitation Condition at Discharge: Stable Discharge Disposition: 01 Home, Self Care - DIAGNOSES Admission Diagnoses: Pneumonia due to COVID-19 virus Hypoxia Fibromyalgia Discharge Diagnoses with Status of Each Condition: Pneumonia due to COVID-19 virus: Acute. Resolved Hypoxia: Acute. Resolved Fibromyalgia: Chronic. 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 Unvaccinated. Seen in a walk-in clinic 9 days ago and was Covid positive. She became symptomatic with illness in August 01 with a headache, aches, chills, sinus pain. Over the last few days she is coughing, has dyspnea on exertion. Weak, anorexic. Has no high blood pressure, diabetes, cancer, immunocompromise state. There is no hemoptysis. No abdominal pain, no diarrhea. At home she has a pulse oximeter where her O2 sats are 86 and 89% on room air. She was seen in the emergency room where temperature was 36.8. Heart rate 83. Blood pressure 138/83. Respirations 20. 91% on room air. She has a significant cough with rhonchi at both bases and diminished breath sounds at both bases. No tachypnea. BMP is normal. White cell count is low at 3.4. Hemoglobin normal at 15.4. Platelets 223. Chest x-ray shows - HOSPITAL COURSE Hospital Course: She had 4-day stay in the hospital. She completed a regimen of remdesivir.She was treated with dexamethasone throughout her hospital stay. She also received a prescription of dexamethasone for 9 days upon discharge. Her respiratory status improved steadily through the course of her hospital stay. She had an oxygen desaturation study on the day of discharge and was dete rmined not to be in need of supplemental oxygen upon discharge. She was advised About continued weakness upon going home and for her to not over exert herself. She will return to work when she feels like she is capable of doing so. She was encouraged to use the incentive spirometer as often as possi ble at home She expressed understanding and was agreeable with the plan. She may follow-up with her primary care physician as needed. - ALLERGIES Allergies/Adverse Reactions: Allergies Allergy/AdvReac Type Severity Reaction Status Date / Time codeine Allergy Emesis Verified 01/07/21 10:59 morphine Allergy Emesis Verified 01/07/21 10:59 - MEDICATIONS Home Medications: Ambulatory Orders Medication Instructions Recorded Confirmed Acetaminophen [Tylenol] 650 mg PO Q4HR PRN tablet 08/12/21 Ascorbic Acid/Elderberry Fruit 1 each PO DAILY 08/12/21 08/12/21 [Elderberry-Vit C 50-100 mg Chw] Cholecalciferol (Vitamin D3) 200 - 250 mcg PO DAILY 08/12/21 08/12/21 [Vitamin D3] Dexamethasone [Decadron] 6 mg PO DAILY #9 tablet 08/12/21 Naltrexone HCl 0.3 ml PO QPM 08/12/21 Ondansetron Odt [Zofran Odt] 4 mg TL Q6HR PRN #30 tablet 08/12/21 Sertraline HCl 100 mg PO DAILY 08/12/21 08/12/21 Thiamine [Vitamin B-1] 100 mg PO DAILY 08/12/21 08/12/21 Vitamin B Complex 1 each PO DAILY 08/12/21 08/12/21 - PHYSICAL EXAM AT DISCHARGE General Appearance: positive: No acute distress, Alert Eyes Bilateral: positive: PERRL, EOMI ENT: positive: No signs of dehydration Neck: positive: No JVD, Trachea midline Respiratory: positive: Chest non-tender, No respiratory distress, Other (Mild crackles in lung bases bilaterally.) Cardiovascular: positive: Regular rate & rhythm, No murmur, No gallop Abdomen: positive: Non-tender, No organomegaly, Nml bowel sounds, No distention. negative: Guarding, Rebound Back: positive: Nml inspection Skin: positive: Color nml, No rash, Warm, Dry Extremities: positive: Non-tender, Full ROM, No pedal edema Neurologic/Psychiatric: positive: Oriented x3, Mood/affect nml - LABS Result Diagrams: 08/15/21 05:19 08/15/21 05:19 - TIME SPENT Time Spent in Discharge (Minutes): 20
--- NOTE | 2021-08-15 08:55 | Discharge Plan ---
Discharge Plan Problem Reviewed?: Yes Disposition: Home, Self Care Condition: Poor Prescriptions: Ondansetron Odt [Zofran Odt] 4 mg TL Q6HR PRN #30 tablet PRN Reason: Nausea / Vomiting Dexamethasone [Decadron] 6 mg PO DAILY #9 tablet Diet: Regular Activity Restrictions: Activity as Tolerated Shower Restrictions: No Driving Restrictions: No Health Concerns: you presented to the hospital with respiratory distress and we found you to have a low oxygen because of Covid. Your oxygen sometimes goes back up to normal. We admitted you for Covid pneumonia and started you on the treatment with remdesivir and steroids. Overnight, your oxygen levels have been satisfactory at 94% but on 2 liter of [place] oxygen. You have O2 sats of 92% at rest. With walking you oxygen goes to Plan of Treatment: 1. I am recommending that you stay in the hospital because your white cell count has dropped, and I do think you will be getting worse not better in the next 24 to 48 hours. You still feel like you can go home and will return if you worsen. 2. I will send you home on Decadron 6 mg a day for total of 10 days of therapy. 3. You would like some Zofran to go home with for the nausea when it returns. 4. Please see your primary care provider in follow-up in via telemedicine. Care Goals: To recover from Covid at home without needing hospitalization is your personal goal Assessment: Patient states that she will get vaccine as soon as possible. And will return to hospital if she worsens No Smoking: If you smoke, Please STOP! Call for help. Follow-up with: Balwinder Vega ARNP [Primary Care Provider] -
[2021-08-15 09:00] VITALS: BP 105/72
[2021-08-15] MEDS: REMDESIVIR 100MG VIAL 100 MG in SODIUM CHLORIDE 0.9% 100ML 100 ML IV SCH (10:13)
[2021-08-15] MEDS: SERTRALINE 50 MG TABLET PO SCH (10:14)
[2021-08-15] MEDS: THIAMINE 100 MG TABLET PO SCH (10:15)
[2021-08-15] MEDS: ENOXAPARIN 40 MG/0.4 ML SYRINGE SUBQ SCH (10:22)
== END 2021-08-15 13:15 | disposition home or self-care (01) | DRG 177 ==
LOC: ED 16:42 → MS2 18:11
PROVIDERS: ADMIT Specialist; ATTEND Internal Medicine
PROC: XW033E5 Introduction of Remdesivir Anti-infective into Peripheral Vein, Percutaneous Approach, New Technology Group 5 (ICD-10-PCS; principal; 2021-08-11)
PROC: 3E0333Z Introduction of Anti-inflammatory into Peripheral Vein, Percutaneous Approach (ICD-10-PCS; 2021-08-11)
DX: U07.1 COVID-19 (principal); J12.82 Pneumonia due to coronavirus disease 2019; R09.02 Hypoxemia; M79.7 Fibromyalgia; F32.9 Major depressive disorder, single episode, unspecified; Z79.899 Other long term (current) drug therapy; Z87.891 Personal history of nicotine dependence
CPT/HCPCS: 36415; 71045; 80048; 82803; 83735; 85025; 85379; 86140; 94761; 96374; 96375; 99284; 99285; A9270; C9399; J1650; J7120; J8540; Q0162